=== PATIENT | male | born 1945 | race Caucasian/White ===

== ENCOUNTER 2018-11-20 08:12 | Observation (INO) ==
[2018-11-21] MEDS ORDERED: ATORVASTATIN 40 MG TABLET PO SCH (09:00)
[2018-11-21] MEDS ORDERED: PANTOPRAZOLE 40 MG TABLET PO SCH (09:00)
[2018-11-21] MEDS ORDERED: LISINOPRIL 10 MG TABLET PO SCH (09:00)
[2018-11-21] MEDS ORDERED: ASPIRIN CHEW 81 MG TABLET PO SCH (09:00)
[2018-11-21] MEDS ORDERED: METOPROLOL SUCCINATE XL 100 MG TABLET PO SCH (09:00)
[2018-11-21] MEDS ORDERED: CHOLECALCIFEROL 1,000 UNIT TABLET PO SCH (09:00)
[2018-11-21 11:56] VITALS: BP 157/83
== END 2018-11-21 12:45 | disposition home or self-care (01) ==
LOC: EDBD → N.TELEN → SUATTDRO 09:39 → N.TELEN 10:06
PROVIDERS: ADMIT Internal Medicine; ATTEND Internal Medicine